=== PATIENT | male | born 1950 | race Caucasian/White ===

== ENCOUNTER 2024-05-04 07:42 | Day surgery (SDC) | payer MEDICARE, OTHER ==
[~2024-05-04 07:42] MED LIST: Lactated Ringers 1,000 ML IV SCH
[2024-05-04] MEDS: Lactated Ringers 1,000 ML IV SCH (07:57)
[2024-05-04] MEDS ORDERED: fentaNYL 100 MCG/2 ML SDV ONE (08:30)
[2024-05-04] MEDS ORDERED: Propofol 200 MG/20 ML SDV ONE ×2 (08:30→09:48)
[2024-05-18] MEDS ORDERED: Lactated Ringers 1,000 ML IV SCH (07:00)
== END 2024-05-04 11:15 | disposition home or self-care (01) ==
LOC: VM.SDS 07:42
PROVIDERS: ATTEND Family Medicine
DX: Z12.11 Encounter for screening for malignant neoplasm of colon (principal); K57.30 Diverticulosis of large intestine without perforation or abscess without bleeding; K64.9 Unspecified hemorrhoids; I12.9 Hypertensive chronic kidney disease with stage 1 through stage 4 chronic kidney disease, or unspecified chronic kidney disease; N18.9 Chronic kidney disease, unspecified
CPT/HCPCS: J2704; J3010; J7120

== ENCOUNTER 2024-12-30 15:57 | Emergency (ER) | payer MEDICARE ==
[2024-12-30] MEDS ORDERED: Lidocaine 1% with EPINEPHrine 1:100,000 20 ML MDV INFILT ONE (16:39)
[2024-12-30] MEDS: Diphtheria,Pertussis(Acell),Tetanus Vaccine 0.5 ML Syringe IM ONE (18:15)
== END 2024-12-30 18:25 | disposition home or self-care (01) ==
LOC: VM.ED 15:57
DX: S81.812A Laceration without foreign body, left lower leg, initial encounter (principal); S31.119A Laceration without foreign body of abdominal wall, unspecified quadrant without penetration into peritoneal cavity, initial encounter; Z23 Encounter for immunization; I12.9 Hypertensive chronic kidney disease with stage 1 through stage 4 chronic kidney disease, or unspecified chronic kidney disease; N18.9 Chronic kidney disease, unspecified; E66.9 Obesity, unspecified; Z68.32 Body mass index [BMI] 32.0-32.9, adult; Z79.899 Other long term (current) drug therapy; W26.0XXA Contact with knife, initial encounter; Y99.0 Civilian activity done for income or pay; Y92.89 Other specified places as the place of occurrence of the external cause
CPT/HCPCS: 12002; 90471; 90715; 99282-25